=== PATIENT | female | born 1990 | race Hispanic/Latino ===

== ENCOUNTER 2016-11-21 08:06 | Inpatient (IN) | payer BC, OTHER ==
[2016-11-21 09:12] VITALS: BMI 26.5
[2016-11-21] MEDS ORDERED: Lactated Ringer's 1,000 ML IV SCH (09:30)
[2016-11-21] MEDS: Lactated Ringer's 1,000 ML IV SCH ×2 (09:45→10:45)
[2016-11-21 10:01] LABS: BASO % 0.2 % (0.0-2.0); EOS % 0.1 % (0.0-4.0); HEMATOCRIT 38.4 % (34.0-47.0); LYMPH # 0.9 K/uL (1.0-4.3); LYMPH % 5.9 % (20.0-40.0); MEAN CELL VOLUME 89.4 fl (81.0-99.0); MEAN CORPUSCULAR HEMOGLOBIN 28.8 pg (27.0-31.0); MEAN CORPUSCULAR HGB CONC 32.3 g/dL (33.0-37.0); MEAN PLATELET VOLUME 9.6 fl (7.2-11.7); MONO # 0.4 K/uL (0.0-0.8); MONO % 2.4 % (0.0-10.0); NEUT # 14.5 K/uL (1.8-7.0); NEUT % 91.4 % (50.0-75.0); NRBC % 0.1 % (0.0-0.0); PLATELET COUNT 303 K/uL (130-400); WHITE BLOOD COUNT 15.8 K/uL (4.8-10.8)
[2016-11-21] MEDS ORDERED: Fentanyl/Bupivacaine HCl 250 ML EPI ONE (10:04)
[2016-11-21] MEDS ORDERED: Bupivacaine HCl 0.25% PF (10 ml) Inj ONE (10:05)
[2016-11-21] MEDS ORDERED: Oxytocin 30 units/LR 500ML 30 U/500 ML BAG IV ONE (11:12)
[2016-11-21] MEDS ORDERED: Lidocaine 1% Inj (20ml) ONE ×2 (11:13→13:55)
[2016-11-21 13:04] LABS: NEUTROPHIL 89 % (42-75); TOTAL CELLS COUNTED 100
[2016-11-21 13:05] LABS: LARGE PLATELETS PRESENT; PLATELET CLUMPS PRESENT
[2016-11-21] MEDS ORDERED: Oxytocin 30 units/LR 500ML 30 U/500 ML BAG IV SCH (14:20)
[2016-11-21] MEDS ORDERED: Oxycodone/Acetaminophen 5/325 mg Tab PO PRN (14:34)
--- NOTE | 2016-11-21 14:51 | OBDS ---
DELIVERY PERSONNEL Delivery Doctor: David Ovalle MD Anesthesiologist: David Arana MD Resident: Matilde Brar PGY1 MATERNAL INFORMATION Delivery Anesthesia: Epidural Medications in Delivery: Pitocin 30 units in 500 mls Placenta Cultured: No Maternal Complications: None (Annotations: Data stored by N on behalf of user) Provider Comments: Normal spontaneous vaginal delivery. Delivered viable female with Apgars of 9 and 9 at 1 and 5 minutes respectively. Placenta de livered spontaneously. Umbilical cord with true knot observed at delivery. Due to bradycardia, midline episiotomy performed. Laceration repaired, as above. Uterus firm and appropriately hemostatic following delivery. Cord blood gases sent. Patient tolerated delivery and repair well. Pediatrics pr esent at delivery. No complications. EBL 300 mL LABOR SUMMARY EDC: 12/08/2016 00:00 No. Babies in Womb: 1 Attempted: No Labor Anesthesia: Epidural LABOR INFORMATION Reason for Induction: Not Applicable Onset of Labor: 11/21/2016 04:30 Oxytocin: N/A Group B Beta Strep: Negative Steroids Given: None Reason Steroids Not Administered: Not Applicable MEMBRANES Membranes Rupture Method: Spontaneous Amniotic Fluid Color: Clear Amniotic Fluid Amount: Small Amniotic Fluid Odor: Normal STAGES OF LABOR Stage 3 hrs: 0 Stage 3 min: 10 Total Time in Labor hrs: 9 Total Time in Labor min: 48 VAGINAL DELIVERY Episiotomy: Median Laceration Extension: Second Degree Laceration Type: None Laceration Repair: Yes Laceration Repair Note: Due to persistent bradycardia, decision for episiotomy. Midline episio severo. Second-degree midline laceration. After delivery, area infiltrated with 1% lidocaine. Lacerati on repaired with 2. 0 repeat without complication. No complications. Patient tolerated repair well. BABY A INFORMATION Delivery Date/Time: 11/21/2016 14:08 Method of Delivery: Vaginal Born in Route : No : N/A Forceps: N/A Vacuum Extraction: N/A Shoulder Dystocia : No SHOULDER DYSTOCIA BABY A Delivery Date/Time: 11/21/2016 14:08 PRESENTATION/POSITION BABY A Presentation: Cephalic Cephalic Presentation: Vertex Breech Presentation: N/A PLACENTA INFORMATION BABY A Placenta Delivery Time : 11/21/2016 14:18 Placenta Method of Delivery: Spontaneous Placenta Status: Delivered SCORES BABY A Heart Rate 1 min: >100 bpm Resp Effort 1 min: Good Cry Reflex Irritability 1 min: Cough or Sneeze or Pulls Away Muscle Tone 1 min: Active Motion Color 1 min: Body Gould, Extremities Blue SCORE 1 MIN: 9 Heart Rate 5 min: >100 bpm Resp Effort 5 min: Good Cry Reflex Irritability 5 min: Cough or Sneeze or Pulls Away Muscle Tone 5 min: Active Motion Color 5 min: Body Gould, Extremities Blue SCORE 5 MIN: 9 Resuscitation Effort 10 min: N/A INFANT INFORMATION BABY A Gestational Age at Delivery: 37.4 Gestational Status: Term Infant Outcome : Liveborn Infant Condition : Stable Sex: Female WEIGHT/LENGTH BABY A Infant Birthweight (gms): 2680 Infant Weight (lb): 5 Weight (oz): 15 Length Inches: 19.50 Length cms: 49.5 CORD INFORMATION BABY A True Knot: 1
[2016-11-21 21:04] VITALS: BP 115/77; PULSE 84; RESP 18; TEMP 98.8; O2SAT 99
[2016-11-22 07:04] LABS: BASO % 0.2 % (0.0-2.0); EOS % 0.3 % (0.0-4.0); HEMATOCRIT 31.3 % (34.0-47.0); LYMPH # 2.3 K/uL (1.0-4.3); LYMPH % 18.2 % (20.0-40.0); MEAN CELL VOLUME 89.5 fl (81.0-99.0); MEAN CORPUSCULAR HEMOGLOBIN 28.3 pg (27.0-31.0); MEAN CORPUSCULAR HGB CONC 31.6 g/dL (33.0-37.0); MEAN PLATELET VOLUME 9.1 fl (7.2-11.7); MONO # 0.9 K/uL (0.0-0.8); MONO % 7.2 % (0.0-10.0); NEUT # 9.2 K/uL (1.8-7.0); NEUT % 74.1 % (50.0-75.0); RED CELL DISTRIBUTION WIDTH 13.6 % (11.5-14.5); WHITE BLOOD COUNT 12.4 K/uL (4.8-10.8)
[2016-11-22] MEDS ORDERED: Oxycodone/Acetaminophen 5/325 mg Tab PO PRN (07:23)
--- NOTE | 2016-11-22 12:08 | OBPPN ---
Datetime: 11/22/2016 12:01 PP Pain Prov: Within normal limits PP Nausea Prov: Denies PP Flatus Prov: Yes PP Breasts Prov: Normal PP Heart Prov: Normal PP Lungs Prov: Normal PP Abdomen/Uterus Prov: Normal PP Lochia Prov: Normal PP Vulva/Perineum Prov: Normal PP CVA Tenderness Prov: Normal PP Extremities Prov: Normal PP Comments Phys Exam Prov: Fundus firm under umbilicus PP Impression Prov: Normal progression PP Plan Prov: Continue present management PP Progress Note Prov: Patient denies CP, no SOB, no N/V, tolerating PO diet, ambulating/voiding wel l, mild lochia, abdominal pain tolerable with meds A/P PPD #1 1. Reg diet 2. Motrin/Percocet prn pain 3. Encourage ambulation/ IP PP Procedures: None Vital Signs Provider PP: Reviewed
--- NOTE | 2016-11-23 09:26 | OBPPN ---
Datetime: 11/23/2016 09:24 PP Pain Prov: Within normal limits PP Nausea Prov: Denies PP Flatus Prov: Yes PP BM Prov: Yes PP Breasts Prov: Normal PP Heart Prov: Normal PP Lungs Prov: Normal PP Abdomen/Uterus Prov: Normal PP Lochia Prov: Normal PP Vulva/Perineum Prov: Normal PP CVA Tenderness Prov: Normal PP Extremities Prov: Normal PP Impression Prov: Normal progression PP Plan Prov: Discharge PP Progress Note Prov: A: S/P day 2 Anemia stable PLAN: dischsarge home and follow up in 6w Vital Signs Provider PP: Reviewed; Within Normal Limits
--- NOTE | 2016-11-23 09:26 | OBDCSUM ---
Datetime: 11/23/2016 09:25 Discharged to, Provider: Home Follow up at, Provider: Caarepjennifer Disch Instr Activity: Normal activity Disch Instr Diet: Regular Discharge Instructions, Provider: Routine instructions given Discharge Diagnosis, Provider: Term Delivered Follow up in weeks, Provider: =6w Disch Referrals: None Contraception discussed, Prov: Yes Disch Activity Restrictions: No sexual activity; Nothing in vagina - [place], tampons, douche
== END 2016-11-23 13:55 | disposition home or self-care (01) | DRG 775 ==
LOC: H.EROB2 08:06 → H.L&D 08:25 → H.EROB2 09:40 → H.L&D 09:43 → H.OB/GYN 20:45
PROVIDERS: ADMIT Obstetrics & Gynecology; ATTEND Obstetrics & Gynecology
PROC: 0W8NXZZ Division of Female Perineum, External Approach (ICD-10-PCS; principal; 2016-11-21)
PROC: 10E0XZZ Delivery of Products of Conception, External Approach (ICD-10-PCS; 2016-11-21)
PROC: 0KQM0ZZ Repair Perineum Muscle, Open Approach (ICD-10-PCS; 2016-11-21)
PROC: 4A1HXCZ Monitoring of Products of Conception, Cardiac Rate, External Approach (ICD-10-PCS; 2016-11-21)
DX: O76 Abnormality in fetal heart rate and rhythm complicating labor and delivery (principal); D64.9 Anemia, unspecified; O99.02 Anemia complicating childbirth; O70.1 Second degree perineal laceration during delivery; Z37.0 Single live birth; Z3A.37 37 weeks gestation of pregnancy